=== PATIENT | male | born 1970 | race Caucasian/White ===

== ENCOUNTER 2016-09-28 12:34 | Emergency (ER) | payer OTHER, BC ==
[~2016-09-28] VITALS: Ht 172.7 cm; Wt 106.2 kg
[2016-09-28 14:13] VITALS: BP 149/89
== END 2016-09-28 14:15 | disposition home or self-care (01) ==
LOC: EME 12:34
DX: F32.9 Major depressive disorder, single episode, unspecified (principal)
CPT/HCPCS: 99281; 99283